=== PATIENT | male | born 1970 | race Caucasian/White ===

== ENCOUNTER 2019-12-13 13:00 | Emergency (ER) | payer OTHER ==
[~2019-12-13] VITALS: Ht 175.3 cm; Wt 125.0 kg
[2019-12-13 13:05] VITALS: BP 136/96
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
[2019-12-13 13:33] LABS: BASO # 0.1 x10^3/uL (0.0-0.2); BASO % 1 % (0-3); EOS # 0.1 x10^3/uL (0.0-0.7); EOS % 1 % (0-3); HEMATOCRIT 43.9 % (39.0-53.0); HEMOGLOBIN 15.3 g/dL (13.0-17.5); LYMPH % 15 % (24-48); MEAN CORPUSCULAR HEMOGLOBIN 30 pg (25-35); MEAN CORPUSCULAR HGB CONC 35 g/dL (31-37); MEAN CORPUSCULAR VOLUME 86 fL (79-100); MONO # 1.1 x10^3/uL (0.0-1.1); MONO % 9 % (0-9); NEUT # 10.1 x10^3uL (1.8-7.7); NEUT % 75 % (31-73); PLATELET COUNT 286 x10^3/uL (140-400); RED BLOOD COUNT 5.12 x10^6/uL (4.30-5.70); RED CELL DISTRIBUTION WIDTH 14.6 % (11.5-14.5); WHITE BLOOD COUNT 13.4 x10^3/uL (4.0-11.0)
[2019-12-13] MEDS ORDERED: IOHEXOL 240 MG/ML 50ML VIAL. ONE (13:34)
[2019-12-13 13:36] LABS: CALCIUM 9.5 mg/dL (8.5-10.1); CREATININE 1.2 mg/dL (0.7-1.3); GFR 63.8; POTASSIUM 4.6 mmol/L (3.5-5.1)
[2019-12-13 13:42] LABS: ALBUMIN 3.9 g/dL (3.4-5.0); ALBUMIN/GLOBULIN RATIO 1.1 (1.0-1.7); TOTAL BILIRUBIN 1.1 mg/dL (0.2-1.0); TOTAL PROTEIN 7.3 g/dL (6.4-8.2)
[2019-12-13] MEDS: IOHEXOL 300 MG/ML 75 ML VIAL. IV ONE (14:21)
[2019-12-13] MEDS: IOHEXOL 240 MG/ML 50ML VIAL. PO ONE (14:21)
--- NOTE | 2019-12-13 15:04 | RAD ---
INDICATION: Reason: mid abdominal pain, hernia / Spl. Instructions: / History: COMPARISON: None. TECHNIQUE: Axial CT images obtained through the abdomen and pelvis with contrast. One or more of the following individualized dose reduction techniques were utilized for this examination: 1. Automated exposure control; 2. Adjustment of the mA and/or kV according to patient size; 3. Use of iterative reconstruction technique. FINDINGS: 5 mm nodule left lung base. Abdominal aorta is nonaneurysmal. There is some scattered plaque. Small fat-containing left inguinal hernia. Postcholecystectomy changes without intrahepatic bile duct dilation. No peripancreatic fluid collection. Spleen unremarkable. Urinary bladder is partially distended. No hydronephrosis. Suture line is seen at the sigmoid region. There is a couple of anterior abdominal wall hernia is. One of these contains fat and the other contains fat as well as loops of small bowel. There are some dilated loops of proximal small bowel with distal decompression. Small amount of mesenteric edema is seen. Degenerative changes of the spine IMPRESSION: * There are some dilated loops of small bowel with distal decompression. This could be seen with partial small bowel obstruction. Small amount of edema in the mesentery. * Multiple anterior abdominal wall hernias including within the hernias with loops of bowel extending into it. A transition point is not seen within the hernia sac. * 5 mm nodule left lung base. Fleischner Society recommendations for solitary solid lung nodule follow up.: In a low risk patient: <6mm - No follow up required. 6-8mm - 6-[address], then CT at 18-24 months. >8mm - CT at 3 months, PET/CT or tissue sampling. In a high risk patient (history of smoking or other known risk factors): <6mm - Follow up CT at 12 months. 6-8mm - 6-[address], then CT at 18-24 months. >8mm - CT at 3 months, PET/CT or tissue sampling. Fleischner Society recommendations for multiple solid lung nodule follow up.: In a low risk patient: <6mm - No follow up required. 6-8mm - 3-[address], then CT at 18-24 months. >8mm - CT at 3-6 months, then at 18-24 months. PET/CT or tissue sampling based on most suspicious nodule. In a high risk patient (history of smoking or other known risk factors): <6mm - Follow up CT at 12 months. 6-8mm - 3-[address], then CT at 18-24 months. >8mm - CT at 3-6 months, PET/CT or tissue sampling option based on most suspicious nodule. Electronically signed by: Gerardo Fortune MD (12/13/2019 3:01 PM) [id number]
[2019-12-13] MEDS ORDERED: IV NORMAL SALINE 1,000ML 1,000 ML IV SCH (15:43)
[2019-12-13] MEDS: MORPHINE SULFATE 4 MG/ML DISP.SYRIN. IV ONE (16:09)
[2019-12-13] MEDS: ONDANSETRON PF 4 MG/2 ML VIAL. IVP PRN (16:12)
[2019-12-13] MEDS: MORPHINE SULFATE 4 MG/ML DISP.SYRIN. IVP PRN (18:41)
[2019-12-13] MEDS ORDERED: DIPH,PERTUSS(ACELL),TET VAC/PF 0.5 ML SYRINGE. VAX IM ONE (18:42)
[2019-12-13] MEDS: DIPH,PERTUSS(ACELL),TET VAC/PF 0.5 ML SYRINGE. VAX IM ONE (18:45)
== END 2019-12-13 19:40 | disposition home or self-care (01) ==
LOC: ER 13:00
DX: K56.600 Partial intestinal obstruction, unspecified as to cause (principal); R11.10 Vomiting, unspecified; I10 Essential (primary) hypertension; E66.9 Obesity, unspecified; Z68.41 Body mass index [BMI] 40.0-44.9, adult; Z59.0 Homelessness
CPT/HCPCS: 36415; 74177; 80053; 83690; 84484; 85025; 90471; 90715; 96374; 96375; 96376; 99285; J2270; J2405; Q9966; Q9967

== ENCOUNTER 2020-04-28 18:04 | Emergency (ER) | payer OTHER ==
[~2020-04-28] VITALS: Ht 175.3 cm; Wt 113.0 kg
[2020-04-28] MEDS ORDERED: ONDANSETRON PF 4 MG/2 ML VIAL. IVP ONE ×2 (18:45→21:00)
[2020-04-28] MEDS ORDERED: FAMOTIDINE 20 MG/2 ML VIAL IVP ONE (18:45)
[2020-04-28] MEDS ORDERED: IOHEXOL 300 MG/ML 75 ML VIAL. IV ONE (18:45)
[2020-04-28] MEDS ORDERED: KETOROLAC 15 MG/ML VIAL. IVP ONE (18:45)
[2020-04-28] MEDS ORDERED: IV NORMAL SALINE 1,000ML 1,000 ML IV ONE (18:45)
[2020-04-28 18:56] LABS: BASO % 0 % (0-3); EOS # 0.1 x10^3/uL (0.0-0.7); EOS % 1 % (0-3); HEMATOCRIT 47.1 % (39.0-53.0); HEMOGLOBIN 15.7 g/dL (13.0-17.5); LYMPH # 1.5 x10^3/uL (1.0-4.8); LYMPH % 12 % (24-48); MEAN CORPUSCULAR HEMOGLOBIN 29 pg (25-35); MEAN CORPUSCULAR HGB CONC 33 g/dL (31-37); MEAN CORPUSCULAR VOLUME 86 fL (79-100); MONO # 0.9 x10^3/uL (0.0-1.1); MONO % 8 % (0-9); NEUT # 9.7 x10^3uL (1.8-7.7); NEUT % 79 % (31-73); PLATELET COUNT 322 x10^3/uL (140-400); RED CELL DISTRIBUTION WIDTH 13.8 % (11.5-14.5); WHITE BLOOD COUNT 12.3 x10^3/uL (4.0-11.0)
[2020-04-28 19:05] LABS: CALCIUM 9.7 mg/dL (8.5-10.1); GFR 78.8; POTASSIUM 3.9 mmol/L (3.5-5.1)
[2020-04-28 19:11] LABS: ALBUMIN 4.3 g/dL (3.4-5.0); ALBUMIN/GLOBULIN RATIO 1.2 (1.0-1.7); MAGNESIUM 2.3 mg/dL (1.8-2.4); TOTAL BILIRUBIN 0.7 mg/dL (0.2-1.0); TOTAL PROTEIN 7.9 g/dL (6.4-8.2)
[2020-04-28 19:20] LABS: BACTERIA,URINE 0 /HPF (0-FEW); BILIRUBIN,URINE NEG (NEG); CLARITY,URINE CLEAR; COLOR,URINE YELLOW; GLUCOSE,URINE NEG (NEG); NITRITE,URINE NEG (NEG); RBC,URINE RARE /HPF (0-2); SQUAMOUS EPITHELIAL CELL,UR MOD /LPF; WBC,URINE RARE /HPF (0-4)
--- NOTE | 2020-04-28 19:32 | PHYS DOC ---
Past History Past Medical History: Hypertension, Pancreatitis Additional Past Medical Histor: Hep C, has been through treatment Past Surgical History: Colectomy, Other Additional Past Surgical Histo: cardiac cath, shoulder replacement, knee surgery, hand surgery. Smoking: Non-smoker Alcohol Use: None Drug Use: None General Adult EDM: Chief Complaint: ABDOMINAL PAIN HPI: HPI: Patient is a 49 year old male who presents with abdominal pain. He has a 2 year history of pain through an incisional hernia midline around the umbilicus where he had a colectomy for diverticulitis. Original surgery was reportedly done in Jun 2017 at [facility]. He was last hospitalized in Dec 2019 due to pain and partial small bowel obstruction due to hernia with plans for surgical r epair with Dr. Hdez (General surgery at [facility]). Patient reports the surgery has been rescheduled "a few times" due to COVID. Today, pt noticed increased abdominal distention and bulging but pain has been more significant with associated non-bloody vomiting >15 times. He has been unable to hold down any food or water. Nausea and pain worsens whenever he stands up or increases intra-abdominal pressure. He reports being able to "reduce the hernia" at home. He called Dr. Hdez's office today and was advised to come into the ED for vomiting and pain with concern for hernia incarceration. Pt denies chest pain, shortness of breath, or fever. Denies known exposure to COVID 19. Reports last ate some "mash potatoes" at 1100 and tried to drink some tea at 1400 but reports he wasn't able to keep the tea down. Review of Systems: Review of Systems: Respiratory: Denies cough or shortness of breath Cardiovascular: Denies chest pain or palpitations GI: +abdominal pain, + abdominal bulging + nausea/vomiting : Denies dysuria or hematuria Musculoskeletal: Denies back pain or joint pain Integument: Denies rash or skin color changes Neurologic: Denies headache, focal weakness or sensory changes Complete systems were reviewed and found to be within normal limits, except as documented in this note. Current Medications: Current Meds: Current Medications Medications (Trade) Dose Ordered Sig/[place] Start Time Stop Time Status Last Admin Dose Admin Famotidine (Pepcid Vial) 20 mg 1X ONCE 04/28/20 18:45 04/28/20 18:47 DC Iohexol (Omnipaque 300 Mg/ml) 75 ml 1X ONCE 04/28/20 18:45 04/28/20 18:47 DC Ketorolac Tromethamine (Toradol 15mg Vial) 15 mg 1X ONCE 04/28/20 18:45 04/28/20 18:47 DC Ondansetron HCl (Zofran) 4 mg 1X ONCE 04/28/20 18:45 04/28/20 18:47 DC Sodium Chloride 1,000 ml @ 1,000 mls/hr Q1H ONCE 04/28/20 18:45 04/28/20 19:44 Allergies: Allergies: Allergies Coded Allergies Type Severity Reaction Last Updated Verified No Known Drug Allergies 04/28/20 No Physical Exam: PE: General: Patient appears uncomfortable, nontoxic, obese HENT: Normocephalic, atraumatic Eyes: Conjunctiva normal, no discharge Lungs & Thorax: No respiratory distress, equal chest rise and fall Abdomen: Soft,protuberant abdomen, BS x4, midline surgical scar well-healed above and below umbilicus with tenderness just right of the scar, mild redness to skin right of the scar Skin: Warm, dry, no erythema, no rash Neurologic: Alert and oriented X 3, normal motor function, normal sensory function, no focal deficits noted Psychologic: Affect normal, judgment normal nt normal, mood normal. Current Patient Data: Vital Signs: Vital Signs Date Time Temp Pulse Resp B/P (MAP) Pulse Ox O2 Delivery O2 Flow Rate FiO2 04/28/20 18:08 98.1 98 28 133/83 (100) 95 Room Air Radiology/Procedures: Radiology/Procedures: PROCEDURE: CT ABD PELV W/ IV CONTRST ONLY Examination: CT of the abdomen pelvis with IV contrast HISTORY: History of abdominal pain COMPARISON: None available TECHNIQUE: Axial CT images of the abdomen pelvis were performed with IV contrast. Coronal and sagittal reformats are performed Exposure: One or more of the following individualized dose reduction techniques were utilized for this examination: 1. Automated exposure control 2. Adjustment of the mA and/or kV according to patient size 3. Use of iterative reconstruction technique FINDINGS: 6 mm nodule left lower lobe of the lung. Mild degree attenuation noted in the liver likely hepatic steatosis. Cholecystectomy changes. The spleen, adrenals grossly appears unremarkable. Mild fluid distended stomach. The visualized pancreas grossly appears unremarkable. Multiple dilated small bowel loops identified in the proximal and mid abdomen with the anterior abdominal wall ventral hernia identified consisting loop of bowel concerning fat stranding could be incarcerated hernia. The appendix is normal. The distal small bowel loops are collapsed. Feces and gas noted in the colon. Urinary bladder is mildly distended The bilateral kidneys enhance symmetrically. Mild degenerative changes thoracolumbar spine. IMPRESSION: 1. Anterior abdominal wall ventral hernia containing loop of small bowel with surrounding fat stranding and causing proximal small bowel obstruction likely incarcerated hernia causing small bowel obstruction. 2. Mild hepatic steatosis. 3. A 6 mm nodule left lower lobe lung similar to prior exam. Follow-up per Fleischner Society guidelines with follow-up CT in 6-12 months. Electronically signed by: Bebo Vargas MD (04/28/2020 8:05 PM) [id number] PROCEDURE: CHEST AP ONLY XR CHEST 1V 04/28/2020 12:02 AM INDICATION: NG tube placement COMPARISON: None available TECHNIQUE: Portable frontal view of the chest is provided. FINDINGS: The cardiomediastinal silhouette is within normal limits. Lungs are clear. Nasogastric tube is identified coursing below the level of the distal tip not visualized on this radiograph. There are no significant pleural effusions. There is no pulmonary vascular con gestion. No pneumothorax. No suspicious osseous abnormality. IMPRESSION: There is no acute cardiopulmonary process. Nasogastric tube is identified coursing below the level of the distal tip not visualized on this radiograph. Electronically signed by: Jalyn Nevarez MD (04/29/2020 12:38 AM) [facility] Course & Med Decision Making: Course & Med Decision Making Pertinent Labs and Imaging studies reviewed. (See chart for details) Pt is a 49 year old male with PMH of pancreatitis, diverticulitis s/p colectomy and subsequent incisional hernia who presents with abdominal pain and vomiting. Pain likely chronic from incisional hernia with concern for possible incarceration/obstruction given history and intractable vomiting. Ketorolac, Zofran, and IV fluids started in ED. CT abdomen pelvis showed likely incarcerated abdominal wall hernia with small bowel obstruction. Baseline labs CBC, CMP, lactate unremarkable aside from mild elevation of WBC 12.3. Plan to transfer to [facility] for surgical evaluation and further management. Discussed with Dr. Torres (general surgery with Dr. Hdez) who is in agreement with consultation with request for admission to hospitalist service. Request NGT placement to low intermittent suction. NGT placed with XR confirmation of placement. Patient requiring transfer for admission for further evaluation and treatment. Discussed with Dr. Banks (hospitalist at [facility]) who is in agreement with admission at [facility]. Discussed findings and plan with patient, who acknowledges understanding and agreement. Dragon Disclaimer: Dragon Disclaimer: This electronic medical record was generated, in whole or in part, using a voice recognition dictation system. Departure Departure: Impression: Primary Impression: Incarcerated ventral hernia Disposition: 05 DC/TRF OTHER TYPE INSTITUTI ([facility]- Dr. Banks (hospitalist) accepting) Condition: GUARDED Referrals: PCP,BEBA (PCP) Critical Care Time Critical care time was 30 minutes which includes time at bedside, spent in discussion of patient's care with specialists and/or family members, with interpretation of laboratory and/or radiological studies and is exclusive of procedures. FRANCISCO VILLANUEVA DO Apr 28, 2020 19:32
--- NOTE | 2020-04-28 20:07 | RAD ---
Examination: CT of the abdomen pelvis with IV contrast HISTORY: History of abdominal pain COMPARISON: None available TECHNIQUE: Axial CT images of the abdomen pelvis were performed with IV contrast. Coronal and sagitta l reformats are performed Exposure: One or more of the following individualized dose reduction techniques were utilized for thi s examination: 1. Automated exposure control 2. Adjustment of the mA and/or kV according to patient size 3. Use of iterative reconstruction technique FINDINGS: 6 mm nodule left lower lobe of the lung. Mild degree attenuation noted in the liver likely hepatic st eatosis. Cholecystectomy changes. The spleen, adrenals grossly appears unremarkable. Mild fluid diste nded stomach. The visualized pancreas grossly appears unremarkable. Multiple dilated small bowel loops identified in the proximal and mid abdomen with the anterior abdom inal wall ventral hernia identified consisting loop of bowel concerning fat stranding could be incarc erated hernia. The appendix is normal. The distal small bowel loops are collapsed. Feces and gas note d in the colon. Urinary bladder is mildly distended The bilateral kidneys enhance symmetrically. Mild degenerative changes thoracolumbar spine. IMPRESSION: 1. Anterior abdominal wall ventral hernia containing loop of small bowel with surrounding fat strandi ng and causing proximal small bowel obstruction likely incarcerated hernia causing small bowel obstru ction. 2. Mild hepatic steatosis. 3. A 6 mm nodule left lower lobe lung similar to prior exam. Follow-up per Fleischner Society guideli halina with follow-up CT in 6-12 months. Electronically signed by: Bebo Vargas MD (04/28/2020 8:05 PM) [id number]
[2020-04-28] MEDS ORDERED: LIDOCAINE 2% VISCOUS 15 ML SOLUTION. ONE (21:18)
--- NOTE | 2020-04-29 00:40 | RAD ---
XR CHEST 1V 04/28/2020 12:02 AM INDICATION: NG tube placement COMPARISON: None available TECHNIQUE: Portable frontal view of the chest is provided. FINDINGS: The cardiomediastinal silhouette is within normal limits. Lungs are clear. Nasogastric tube is identi fied coursing below the level of the distal tip not visualized on this radiograph. There are no significant pleural effusions. There is no pulmonary vascular congestion. No pneumothora x. No suspicious osseous abnormality. IMPRESSION: There is no acute cardiopulmonary process. Nasogastric tube is identified coursing below the level of the distal tip not visualized on this radi ograph. Electronically signed by: Jalyn Nevarez MD (04/29/2020 12:38 AM) CL
[2020-04-29] MEDS ORDERED: LIDOCAINE 2% VISCOUS 15 ML SOLUTION. SWSW ONE (00:45)
[2020-04-29 01:00] VITALS: BP 148/92
--- NOTE | 2020-04-29 01:38 | RAD ---
XR ABDOMEN 1V 04/29/2020 1:13 AM INDICATION: NG tube COMPARISON: None available. TECHNIQUE: Single upright view the abdomen is provided. FINDINGS/ IMPRESSION: 1. Nasogastric tube is identified with the side port below level of the hemidiaphragm projecting over the stomach. 2. Prominent small bowel loops are identified in the left midabdomen measuring up to 3.4 cm. Consider ation may be given for ileus versus developing small bowel obstruction. 3. Evaluation is otherwise limited by body habitus. No free intraperitoneal air. 4. Trace left pleural effusion with left basilar subsegmental atelectasis. Electronically signed by: Jalyn Nevarez MD (04/29/2020 1:36 AM) [facility]
== END 2020-04-29 01:24 | disposition short-term general hospital (02) ==
LOC: ER 18:04
DX: K43.6 Other and unspecified ventral hernia with obstruction, without gangrene (principal); I10 Essential (primary) hypertension; Z20.828 Contact with and (suspected) exposure to other viral communicable diseases; Z90.49 Acquired absence of other specified parts of digestive tract
CPT/HCPCS: 36415; 71045; 74018; 74177; 80053; 81001; 83605; 83690; 83735; 85025; 85610; 85730; 96361; 96374; 96375; 96376; 99285; C9803; J1885; J2405; J3010; J3490; J7030; Q9967; U0003